=== PATIENT | male | born 1950 | race Caucasian/White ===

== ENCOUNTER 2024-03-19 20:54 | Emergency (ER) | payer MEDICARE ==
[~2024-03-19] VITALS: Ht 177.8 cm; Wt 78.0 kg
[2024-03-19 20:57] VITALS: BP 146/100; PULSE 94; RESP 14; TEMP 98.6; O2SAT 99
== END 2024-03-19 21:53 | disposition home or self-care (01) ==
LOC: ER 20:54
DX: F10.229 Alcohol dependence with intoxication, unspecified (principal); Y90.9 Presence of alcohol in blood, level not specified
CPT/HCPCS: 99281; 99283